=== PATIENT | male | born 1935 | race Caucasian/White ===

== ENCOUNTER 2017-12-24 09:21 | Emergency (ER) | payer OTHER ==
[~2017-12-24] VITALS: Ht 167.6 cm; Wt 83.5 kg
[2017-12-24 09:28] VITALS: Ht 167.6 cm; Wt 83.5 kg
[2017-12-24 09:57] LABS: BASOPHIL % 0.6 % (0-2); PLATELET COUNT 164 x10^3mcL (130-400)
[2017-12-24 09:59] LABS: RED CELL DISTRIBUTION WIDTH 15.4 % (11.5-14.5)
[2017-12-24 10:01] VITALS: BP 197/109
[2017-12-24 10:09] LABS: CARBON DIOXIDE 31.1 mmol/L (21-32); CHLORIDE SERUM 98 mmol/L (98-107); CREATININE SERUM 0.9 mg/dL (0.7-1.3); GLUCOSE SERUM 278 mg/dL (74-106); POTASSIUM SERUM 3.9 mmol/L (3.5-5.1); SODIUM SERUM 137 mmol/L (136-145)
[2017-12-24 10:13] LABS: ALBUMIN 3.8 g/dL (3.4-5.0); ALKALINE PHOSPHATASE 102 U/L (46-116); ALT/SGPT 21 U/L (16-63); AST/SGOT 43 U/L (15-37); BILIRUBIN TOTAL 0.8 mg/dL (0.20-1.00); TOTAL PROTEIN, SERUM 7.8 g/dL (6.4-8.2)
== END 2017-12-24 10:01 | disposition short-term general hospital (02) ==
LOC: ED 09:21
PROVIDERS: Emergency Medicine
DX: I21.09 ST elevation (STEMI) myocardial infarction involving other coronary artery of anterior wall (principal); E11.9 Type 2 diabetes mellitus without complications; I10 Essential (primary) hypertension
CPT/HCPCS: 83880; J1644; J2270; J2405; J7030; Q0092